=== PATIENT | male | born 1970 | race Caucasian/White ===

== ENCOUNTER 2017-01-13 19:51 | Emergency (ER) | payer BC ==
[~2017-01-13] VITALS: Ht 188 cm; Wt 112.3 kg
[~2017-01-13 19:51] MED LIST: CETIRIZINE; IBUPROFEN; NASONEX SPRAY
[2017-01-13 20:55] VITALS: BP 138/82; PULSE 92; TEMP 99
== END 2017-01-13 20:57 | disposition home or self-care (01) ==
LOC: COL.ER 19:51
DX: J06.9 Acute upper respiratory infection, unspecified (principal)

== ENCOUNTER → 2017-01-16 | Outpatient (REF) ==
[2017-01-16 12:01] LABS: HIV 1/2 Antibodies Non-Reactive; HIV-1p24 Antigen Non-Reactive
== END ==
LOC: ZLAB.WCH 11:25
DX: Z01.89 Encounter for other specified special examinations (principal)

== ENCOUNTER → 2017-04-01 | Outpatient (CLI) | payer BC | LOC: COL.RAD 08:09 | DX: R31.9 Hematuria, unspecified (principal) | CPT/HCPCS: J7050; Q9967 ==

== ENCOUNTER → 2017-05-13 | Outpatient (CLI) | payer BC ==
[2017-05-13 12:43] LABS: CHOLESTEROL RISK RATIO 6.1
== END ==
LOC: COL.LAB 12:15
PROVIDERS: Nurse Practitioner
DX: Z00.00 Encounter for general adult medical examination without abnormal findings (principal)

== ENCOUNTER → 2021-06-04 | Outpatient (CLI) | payer BC | LOC: COL.RAD 12:15 | DX: K57.30 Diverticulosis of large intestine without perforation or abscess without bleeding (principal) | CPT/HCPCS: Q9967 ==

== ENCOUNTER 2021-06-13 13:20 | Day surgery (SDC) | payer BC ==
[2021-06-13] VITALS (9 sets, daily range): BP systolic 101–138; BP diastolic 56–86; PULSE 60–88; TEMP 98–98.1
[~2021-06-13] VITALS: Ht 185.4 cm; Wt 102.0 kg
[2021-06-13] MEDS ORDERED: RYBELSUS3 MG PO (14:38)
--- NOTE | 2021-06-13 17:15 | NUR ---
Pt recently arrived to the floor from [facility]. He is alert and oriented with complaints of discomfort in his penis. Output is light yellow and slightly red tinged. Davion RN in room to explain and instill mitomycin.
--- NOTE | 2021-06-13 17:35 | NUR ---
Pt presents from PACU to room 348. Mitomycin teaching done with pt and printed information provided and reviewed with pt and his , Kalpana. Morgan catheter draining very pale pink colored urine, CBI off. Morgan catheter drained and and clamped. Instillation site prepped with alcohol and mitomycin instilled slowly and tolerated well by pt. Discomfort is reported at penile tip--not bladder. Mitomycin was verified correct with Elba Ortiz RN by comparing printed label with [facility] orders. Consent for surgery includes mitomycin instillation. Chemotherapy precautions observed during this process and appropriate signage placed at door with chemotherapy supplies/yellow container at entry. Report to Elba Ortiz with instillation time of 1715.
--- NOTE | 2021-06-13 19:20 | NUR ---
Mitomycin removed per Chantelle Webster RN rn progressive care unit, 125cc removed from bladder, CBI left off at this time, urine pink, no clots present. chemo precations in place.
[2021-06-14 00:35] VITALS: BP 99/50; PULSE 61; TEMP 98.2
--- NOTE | 2021-06-14 02:25 | NUR ---
urine dark reddish, small clots present, restarted CBI @this time at a slow drip rate.
[2021-06-14 03:57] VITALS: BP 80/47; PULSE 65; TEMP 98.3
[2021-06-14 04:15] VITALS: BP 95/60; PULSE 60
--- NOTE | 2021-06-14 04:20 | NUR ---
mccartney draining clear, yellow urine, CBI turned off at this time. pt has not reported any pain this shift, slight discomfort and discharge at insertion site only. tolerating po, no N/V, IVF to INT last noc after pt ate dinner. BP 95/60 this am, pt states he feels ok, has slept well tonight.
--- NOTE | 2021-06-14 07:36 | NUR ---
Pt doing well at this time, reported that he had a good night. Discussed plan for the day. Pt is concerned about having the catheter removed and voiding after. Discussed process and explained he does have medications ordered if needed. All quesitons answered, call light within reach
[2021-06-14 08:37] VITALS: BP 117/65; PULSE 77; TEMP 97.6
--- NOTE | 2021-06-14 08:59 | NUR ---
Output yellow, slightly pink tinged at times. CBI has been off since middle of the night. Explained procedure for removing catheter and collecting output. Catheter removed and pt given urinal to use. Pt did have pain with removal and requested pain medication. Pt has ordered breakfast, awaiting on it at this time
--- NOTE | 2021-06-14 10:45 | NUR ---
Pt doing well. He has voided multiple times, last 2 voids the output is yellow with no clots or redness noted. Pt does have complaints of sharp pains when voiding. Dr Pathak notified, new orders given and new medications explained and given to pt. Pts at bedside
--- NOTE | 2021-06-14 12:00 | NUR ---
Reviewed dischrage instructions with pt with present. All questions answered. INT removed from left hand and pt escorted out
== END 2021-06-14 12:21 | disposition home or self-care (01) ==
LOC: SDCO 13:20 → SURG 13:20 → SDCO 15:00 → SURG 17:05 → SDCO 06-14 12:21
DX: C67.5 Malignant neoplasm of bladder neck (principal); E11.9 Type 2 diabetes mellitus without complications; Z79.84 Long term (current) use of oral hypoglycemic drugs
CPT/HCPCS: OP; J0690; J1170; J1885; J2270; J2405; J2704; J3010; J7030; J9280